=== PATIENT | male | born 1975 | race Caucasian/White ===

== ENCOUNTER 2022-09-03 09:32 | Emergency (ER) | payer SELFPAY ==
[2022-09-03 09:37] VITALS: BP 187/97; PULSE 75; RESP 16; TEMP 36.7; O2SAT 98; BMI 32.1
--- NOTE | 2022-09-03 10:39 | XR_ITS ---
WS: [id number] Exam: XR chest 1V portable [id number] Date/Time of Exam: 09/03/2022 10:45 AM Reason For Exam: difficulty swallowing, congestion No priors. Findings: The lungs are clear and fully expanded. Costophrenic angles are sharp. No infiltrates. Bronchovascula r relief appears normal. Cardiac silhouette is unremarkable. Bony elements are intact. XR/XR chest 1V portable [id number] IMPRESSION: Unremarkable chest radiograph.
--- NOTE | 2022-09-03 11:10 | W.ED.GENADLT ---
HPI - General Adult General: Chief complaint: Upper Respiratory Infection Stated complaint: throat problems Time Seen by Provider: 09/03/22 10:44 History of Present Illness: Patient is a 46-year-old male that comes to the ED with throat complaint. Symptoms started approximately 3 days ago. He has been having some mucus with collecting in the back of his throat. It causes him to cough and gag on occasion. He is able to cough up some of the mucus and he says is just a thick clear mucus. He endorses some nasal drainage. Denies any choking on any food recently or get anything caught in his throat. Denies any fevers, vomiting, shortness of breath, trouble eating or drinking. Patient is able to drink food and fluids to keep it down. Endorses mild sore throat. No voice change. Patient does state that he uses a CPAP at night and he has not cleaned it in a while. Associated symptoms: Deny chest pain, dyspnea, headache(s), nausea, rash, palpitations or vomiting Review of Systems Const: Denies: fever(s), chills or fatigue Eyes: Denies: change in vision or eye discomfort ENMT: Reports: throat pain (Mild sore throat), nasal discharge and post nasal drip; Denies: odynophagia or nasal congestion Card: Denies: chest pain, palpitations, edema, swelling of feet/ankles, dyspnea on exertion or orthopnea Resp: Denies: dyspnea, productive cough or non-productive cough GI: Denies: abdominal pain, nausea, vomiting, diarrhea, constipation or hematochezia : Denies: flank pain, difficulty urinating, dysuria or hematuria Musc: Denies: neck pain, back pain or extremity swelling Skin/Breast: Denies: rash or new lesions Neuro: Denies: headache(s), numbness in extremities or weakness in extremities PFS ED PFSH: Medical History (Updated 09/03/22 @ 16:01 by TATY Sharp) No pertinent family history Surgical History (Updated 09/03/22 @ 16:01 by TATY Sharp) No pertinent past surgical history Physical Exam Const: COMMON NORMALS: no acute distress, patient oriented x3, healthy appearing and alert HENMT: COMMON NORMALS: normocephalic HEAD & SCALP: normocephalic MOUTH: Normal oral and palatal mucosa present THROAT: posterior oropharynx normal and uvula midline OTHER: No lesions in the back of his throat and no food bolus seen. No voice change. Neck/C-Spine: COMMON NORMALS: supple GENERAL: Yes normal visual inspection Resp: COMMON NORMALS: normal respiratory effort, No retractions, No use of accessory muscles and clear to auscultation bilaterally AUSCULTATION: clear to auscultation bilaterally Cardio: COMMON NORMALS: regular rate, regular rhythm, S1 normal heart sound present, S2 normal heart sound present, No gallops present (Cardio), No clicks present (Cardio), No murmurs present (Cardio) and Peripheral pulses 2+ throughout RATE: regular rate RHYTHM: regular rhythm HEART SOUNDS: S1 normal heart sound present and S2 normal heart sound present PERIPHERAL PULSES: Peripheral pulses 2+ throughout GI: COMMON NORMALS: Normal to inspection, nondistended, normoactive bowel sounds present, Soft to palpation, non-tender and no masses PALPATION: Yes Soft to palpation : COMMON NORMALS: Yes no CVA tenderness BLADDER/KIDNEY EXAM: Yes no CVA tenderness Back/Pelvis: COMMON NORMALS: no CVA tenderness Extremity: COMMON NORMALS: normal to inspection Neuro: COMMON NORMALS: patient oriented x3 SENSORIUM/ORIENTATION: Yes alert GAIT: Yes Normal gait present Skin: GENERAL SKIN EXAM: dry skin Course Vital Signs: Vital signs: Vital Signs Temperature 98.0 F 09/03/22 09:37 Pulse Rate 66 09/03/22 12:54 Respiratory Rate 16 09/03/22 12:54 Blood Pressure 165/100 09/03/22 11:24 Pulse Oximetry 96 09/03/22 12:54 Oxygen Delivery Me thod Room Air 09/03/22 12:09 [facility] - General Adult Medical Decision Making Patient is a 46-year-old male that comes to the ED with throat complaint. Symptoms started approximately 3 days ago. He has been having some mucus with collecting in the back of his throat. It causes him to cough and gag on occasion. He is able to cough up some of the mucus and he says is just a thick clear mucus. He endorses some nasal drainage. Denies any choking on any food recently or get anything caught in his throat. Denies any fevers, vomiting, shortness of breath, trouble eating or drinking. Patient is able to drink food and fluids to keep it down. Endorses mild sore throat. No voice change. Patient does state that he uses a CPAP at night and he has not cleaned it in a while. Vital stable. Patient appears nontoxic in no acute distress or pain. Posterior oropharynx appears normal. He is having no trouble breathing and no voice change noted. Chest x-ray shows no acute findings. Strep and COVID are negative. Patient diagnosed with postnasal drip and was discharged home with a prescription for Zyrtec, Flonase and prednisone. Told to follow-up with his PCP within the next week for reevaluation. Return to ED precautions given. Patient understood and agreed with plan. Lab Data I reviewed the patient's lab results. Radiology Impressions Chest X-Ray 09/03/22 10:39 IMPRESSION: Unremarkable chest radiograph. Laboratory Results SARS-CoV-2 Ag (Rapid) negative (Negative) 09/03/22 11:02 Group A Strep Rapid Negative (Negative) 09/03/22 11:02 Discharge Plan Discharge Patient Disposition: Home Clinical Impression: PND (post-nasal drip) Condition: Stable Prescriptions: New prednisone 20 mg tablet 20 mg PO BID 5 Days Qty: 10 0RF Zyrtec 10 mg tablet 10 mg PO DAILY PRN (Reason: allergy symptoms) Qty: 30 0RF Flonase Allergy Relief 50 mcg/actuation spray,suspension 1 spray intranasal DAILY PRN (Reason: allergy symptoms) Qty: 16 0RF Rx Instructions: administer into each nostril No Action ibuprofen 200 mg Tablet 400 mg PO Q6H PRN (Reason: Pain) valsartan 160 mg Tablet 160 mg PO QAM Discharge Orders: Discharge ED (Routine); Ordered 09/03/22 Ordered By: Jayden Funes Discharge Diet: Regular Discharge Activity: Increase activity as tolerated Activity Restrictions/Additional Instructions: Follow-up with PCP within the next 7 to 10 days for reevaluation. Make sure to drink plenty fluids and stay hydrated. Take medications as prescribed. Return to the ER or your medical provider if condition worsens. Please read and understand discharge instructions. Thank you for choosing [facility] for your healthcare needs today. Please realize this is an emergency room and that we are providing you with a medical screening exam and this may not be complete and all inclusive of all the testing and or work up that you may need to determine your ailment or severity of your illness. It is very important that you follow up as instructed or that you return to the Emergency Department should you have concerns or if your condition changes or worsens in any way. Coding Level of Care Code ED [employer] for Cielo Rooney
[2022-09-03 11:24] VITALS: BP 165/100; PULSE 67; RESP 17; O2SAT 98
[2022-09-03 11:50] LABS: Rapid Strep A Test Negative (Negative)
[2022-09-03 12:00] LABS: SARS Covid-2 Antigen negative (Negative)
[2022-09-03 12:09] VITALS: PULSE 66; RESP 16; O2SAT 96
[2022-09-03 12:54] VITALS: PULSE 66; RESP 16; O2SAT 96
== END 2022-09-03 12:56 | disposition home or self-care (01) ==
PROVIDERS: Emergency Medicine; Emergency Provider Physician Assistant
DX: R09.82 Postnasal drip (principal); Z20.822 Contact with and (suspected) exposure to COVID-19
CPT/HCPCS: 71045; 87081; 87426; 87880; 99284